=== PATIENT | female | born 1980 | race Caucasian/White ===

== ENCOUNTER 2016-06-25 12:08 | Emergency (ER) | payer BC ==
[~2016-06-25] VITALS: Ht 165.1 cm; Wt 140.9 kg
[~2016-06-25 12:08] MED LIST: AMOXICILLIN 50500 MG PO; DEPO-PROVER150 MG/M1 IM; DEPO-PROVER400 MG/ML IM; FERATE27 MG PO; IBU600 MG PO; LORTAB 10/500 51 TAB PO; LORTAB 5/500 501 TAB PO; MAXALT MLT5 MG PO; MAXALT5 MG PO; NO HOME MEDICATIONS; NORCO 325 MG-51 TAB PO; OVRAL PO; PEN-VEE K500 MG PO; PENICILLIN V500 MG PO; PHENERGAN 25 TA25 MG PO; PRENATAL1 TA2 PO; PROVERA 10MG10 MG PO; ULTRAM 50MG TAB50 MG PO; VITAMIN D1000 IU PO; ZOFRAN8 MG PO; [UNRECOGNIZED DRUG - OTHER]
[2016-06-25 12:21] VITALS: BP 155/87; TEMP 98
[2016-06-25 13:26] VITALS: PULSE 70
== END 2016-06-25 13:27 | disposition home or self-care (01) ==
LOC: COL.ER 12:08
DX: G43.909 Migraine, unspecified, not intractable, without status migrainosus (principal); Z87.891 Personal history of nicotine dependence
CPT/HCPCS: J1885; J2550

== ENCOUNTER 2016-09-07 02:16 | Emergency (ER) | payer BC ==
[~2016-09-07] VITALS: Ht 165.1 cm; Wt 136.4 kg
[2016-09-07 02:18] VITALS: TEMP 97.7
[2016-09-07] MEDS ORDERED: AMOXICILLIN 50500 MG PO (02:41)
[2016-09-07 02:46] VITALS: BP 160/90; PULSE 76
== END 2016-09-07 03:29 | disposition home or self-care (01) ==
LOC: COL.ER 02:16
DX: J01.90 Acute sinusitis, unspecified (principal)
CPT/HCPCS: J1040

== ENCOUNTER 2017-04-19 19:07 | Emergency (ER) | payer BC ==
[~2017-04-19] VITALS: Ht 165.1 cm; Wt 128.9 kg
[2017-04-19 19:08] VITALS: TEMP 98.3
[2017-04-19] MEDS ORDERED: PRINIVIL5 MG PO (19:13)
[2017-04-19 21:20] VITALS: BP 134/62; PULSE 78
== END 2017-04-19 21:20 | disposition home or self-care (01) ==
LOC: COL.ER 19:07
DX: B34.9 Viral infection, unspecified (principal); I10 Essential (primary) hypertension; G43.909 Migraine, unspecified, not intractable, without status migrainosus; Z87.891 Personal history of nicotine dependence; Z98.890 Other specified postprocedural states

== ENCOUNTER 2018-04-19 20:18 | Emergency (ER) | payer BC ==
[~2018-04-19] VITALS: Ht 167.6 cm; Wt 136.4 kg
[~2018-04-19 20:18] MED LIST changes: +PRINIVIL5 MG PO
[2018-04-19 20:38] VITALS: BP 188/99; PULSE 95; TEMP 97.9
[2018-04-19 21:41] LABS: BASO % 0.6 % (0.0-2.0); EOS # 0.4 (0.0-0.7); GRAN # 3.4 (1.4-6.5); GRAN % 53.2 % (42.2-75.2); HEMATOCRIT 38.3 % (37.0-47.0); HEMOGLOBIN 11.5 g/dl (12.5-16.0); LYMPH # 1.8 (1.2-3.4); LYMPH % 28.4 % (20.0-51.0); MEAN CELL VOLUME 81 fl (80.0-100.0); MEAN CORPUSCULAR HEMOGLOBIN 24 pg (27.0-31.0); MEAN CORPUSCULAR HGB CONC 30 g/dl (33.0-37.0); MEAN PLATELET VOLUME 9.3 fl (7.4-10.4); MONO # 0.7 (0.1-0.6); MONO % 11.3 % (1.7-9.3); PLATELET COUNT 347 K/mm3 (130-400); RED BLOOD COUNT 4.76 M/mm3 (4.10-5.30); REDCELL DISTRIBUTION WIDTH-CV 15.1 % (11.5-14.5)
[2018-04-19 21:44] LABS: INR 1.1 (0.8-3.0); PROTHROMBIN TIME 12.5 SECONDS (9.7-12.8)
[2018-04-19 21:51] LABS: CALCIUM 8.6 mg/dL (8.4-10.2); CREATININE, serum 0.74 mg/dL (0.52-1.25); POTASSIUM 3.7 mmol/L (3.4-5.0)
[2018-04-19 22:14] LABS: COLLECTION METHOD CATHETER
[2018-04-19 22:20] LABS: MUCOUS Present /lpf; PH 5 (5-8); SQUAMOUS EPITHELIAL 0-2 /hpf; URINE APPEARANCE Clear; URINE BACTERIA None Seen /hpf; URINE BILIRUBIN Positive (NEGATIVE); URINE BLOOD Negative (NEGATIVE); URINE COLOR Yellow; URINE GLUCOSE Negative (NEGATIVE); URINE KETONE Trace (NEGATIVE); URINE LEUKOCYTE ESTERASE Negative (NEGATIVE); URINE NITRATE Negative (NEGATIVE); URINE PROTEIN(semi-quant) 1+ (NEGATIVE); URINE UROBILINOGEN >=4.0 mg/dL (NEGATIVE)
== END 2018-04-20 00:03 | disposition home or self-care (01) ==
LOC: COL.ER 20:18
PROVIDERS: Emergency Medicine
DX: N93.8 Other specified abnormal uterine and vaginal bleeding (principal)
CPT/HCPCS: J1885; J7040

== ENCOUNTER 2018-06-25 14:30 | Emergency (ER) | payer SELFPAY ==
[~2018-06-25] VITALS: Ht 165.1 cm; Wt 145.5 kg
[2018-06-25 14:33] VITALS: BP 166/95; TEMP 100.7
[2018-06-25 15:05] LABS: STREP SCREEN POSITIVE
[2018-06-25] MEDS ORDERED: CEPHALEXIN500 M1 PO (15:21)
[2018-06-25 15:30] VITALS: PULSE 89
== END 2018-06-25 15:31 | disposition home or self-care (01) ==
LOC: COL.ER 14:30
PROVIDERS: Emergency Medicine
DX: J02.0 Streptococcal pharyngitis (principal); F17.210 Nicotine dependence, cigarettes, uncomplicated

== ENCOUNTER → 2022-04-12 | Outpatient (CLI) | payer BC ==
[~2022-04-12] MED LIST changes: +CEPHALEXIN500 M1 PO
== END ==
LOC: MC.RAD 09:47
DX: Z12.31 Encounter for screening mammogram for malignant neoplasm of breast (principal); R92.8 Other abnormal and inconclusive findings on diagnostic imaging of breast

== ENCOUNTER → 2022-04-13 | Outpatient (CLI) | payer BC | LOC: MC.RAD 13:30 | DX: R92.8 Other abnormal and inconclusive findings on diagnostic imaging of breast (principal) ==